=== PATIENT | female | born 1980 | race American Indian/Alaskan Native ===

== ENCOUNTER 2024-08-01 09:16 | Outpatient (RCR) | payer OTHER, SELFPAY ==
--- NOTE | 2024-08-20 21:35 | CTCCONSULT_ITS ---
Patient: ABDELRAHMAN PEMBERTON : 1980 MR#: [id number] Page 2 of 3 CONSULTATION NOTE DATE OF CONSULTATION: 08/01/2024 NAME: ABDELRAHMAN PEMBERTON ACCOUNT: [id number] : 1980 AGE: 44 REFERRING PHYSICIAN: Mimi Ruffin MD ([facility]) PRIMARY PHYSICIAN: Mimi Ruffin MD ([facility]) REASON FOR VISIT: Microcytic anemia HISTORY OF PRESENT ILLNESS: 44-year-old female with a history of fatigue. Patient also getting B12 injections outside. Patient was noted to have microcytic anemia and is here for follow-up and establishing care. Patient is rissa enopausal. Patient used better. Patient. Patient had bariatric surgery. Patient was referred to g astroenterology. Patient also noted to have elevated platelet count and was advised to follow-up wit hematology. OTHER MEDICAL HISTORY/CONDITIONS: ZACHARY? 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 Tobacco?Use:?Denies ETOH?Use:?Socailly Drug?Note:?Denies Social History Note:?Lives with children LICENSED NURSE PRACTITIONER HISTORY: Menarche?-?Age:?13 Date?LMP:?08/01/2024 Hormone?Use:?Denies :?3 Live?Births:?3 Age?1st?:?22 MEDICATIONS: 1. escitalopram oxalate - 10 mg 1 tab Daily 2. gabapentin - 300 mg 1 Capsule Four times a day 3. tiZANidine - 4 mg 1 tab Twice a Day Medications Last Reconciled by Leena Merchant RN on 08/01/2024 ALLERGIES: latex REVIEW OF SYSTEMS: A complete 14-point review of systems was performed and is negative except as noted in interval histo ry. PHYSICAL EXAMINATION: VITAL SIGNS: Temperature?99.4, B/P?129/80, Height?65?inches, Oxygen?Saturation?100% Weight?205?lbs PAIN: 7 - Between severe and very severe pain ECOG Performance Status: 0 - Asymptomatic and fully active GENERAL APPEARANCE: Appears well, in no apparent distress, appropriately interactive. HEENT: Normocephalic, no temporal wasting, normal conjunctiva, no scleral icterus, normal hearing, li ps without lesions, neck normal range of motion. CARDIOVASCULAR: Not assessed. PULMONARY: Normal respiratory effort, no respiratory distress or use of accessory muscles, speaking i n full sentences, no tachypnea. EXTREMITIES: No pedal edema or cyanosis. SKIN: Normal skin appearance. NEUROLOGIC: Alert and oriented x4. PSHYCHIATRIC: Appropriate affect, mood normal, behavior normal, intact thought and speech. 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 BILLING AND COMPLIANCE: I reviewed external records from providers outside my specialty as summarized above. I spent a total of 50 minutes on this patient?s care on the day of their visit excluding time spent related to any bi lled procedures. This time includes time spent with the patient as well as time spent documenting in the medical record, reviewing patients records and tests, obtaining history, placing orders, communi cating with other healthcare professionals, counseling the patient, family or caregiver, and/or care coordination for the diagnoses above. Electronically Signed by: {Object.Sanct_ID*PnP.NameFL@M}, {Object.Sanct_ID*PnP.Suffix@U} D: {Object.Sanct_Date} T: {Object.Sanct_Time} CC: PCP: Mimi Ruffin ([facility]) Referring: Mimi Ruffin ([facility]) This document was completed utilizing speech recognition software. Grammatical errors, random word in sertions, pronoun errors, and incomplete sentences are an occasional consequence of this system due t o software limitations, ambient noise, and hardware issues. Any formal questions or concerns about e content, text or information contained within the body of this dictation should be directly address ed to the provider for clarification.
== END 2024-08-14 23:59 | disposition home or self-care (01) ==
LOC: SCTC 09:16
PROVIDERS: PCP Nurse Practitioner Family; Referring Provider Nurse Practitioner Family; Visit Provider Internal Medicine Hematology & Oncology
DX: D50.9 Iron deficiency anemia, unspecified (principal); D75.839 Thrombocytosis, unspecified
CPT/HCPCS: 99213; G0463

== ENCOUNTER → 2024-08-01 | Outpatient (CLI) | payer OTHER, SELFPAY ==
[2024-08-01 12:11] LABS: Basophils % (Auto) 1 % (0-2.5); Eosinophils # (Auto) 0.2 Thou/mm3 (0.0-0.5); Eosinophils % (Auto) 2 % (0-10); Hematocrit 25.8 % (36.0-46.0); Immature Granulocytes % (Auto) 1 % (0-0); Immature Granulocytes Auto 0.03 Thou/mm3 (0.00-0.00); Lymphocytes # (Auto) 1.7 Thou/mm3 (1.0-4.8); Lymphocytes % (Auto) 27 % (10-50); Mean Corpuscular HGB Conc 28.3 g/dl (31.0-37.0); Mean Corpuscular Hemoglobin 17.7 pg (25.0-35.0); Mean Corpuscular Volume 63 fL (80-100); Monocytes # (Auto) 0.5 Thou/mm3 (0.0-0.8); Monocytes % (Auto) 8 % (0-12); Neutrophils # (Auto) 3.8 Thou/mm3 (1.8-7.7); Neutrophils % (Auto) 62 % (37-80); Nucleated Red Blood Cell % 0 /100 WBC (0); Platelet Count 531 Thou/mm3 (140-440); RDW Standard Deviation 43.9 fL (36.4-46.3); Red Blood Count 4.12 Miln/mm3 (4.00-5.20); White Blood Count 6.2 Thou/mm3 (3.6-11.0)
[2024-08-01 12:19] LABS: Alanine Aminotransferase 21 U/L (10-49); Albumin, Serum 4.8 gm/dL (3.5-5.0); Albumin/Globulin Ratio 1.8 (1.2-2.2); Alkaline Phosphatase 110 U/L (46-116); Anion Gap 9 (7-16); Aspartate Amino Transferase < 10 U/L (0-34); BUN/Creatinine Ratio 18 Ratio (12-20); Bilirubin,Total 0.4 mg/dL (0.3-1.2); Blood Urea Nitrogen 11 mg/dL (9-23); Calcium 9.5 mg/dL (8.3-10.6); Calcium (Corrected) 9.5 mg/dL (8.5-10.1); Carbon Dioxide 26.5 mMol/L (20.0-31.0); Chloride 105 mMol/L (98-107); Creatinine (Component) 0.6 mg/dL (0.6-1.3); Globulin 2.6 gm/dL (2.3-3.5); Glucose 78 mg/dL (74-106); LDH (Lactate Dehydrogenase) 158 U/L (120-246); Osmolality,Calculated 277 (275-295); Potassium 3.8 mMol/L (3.4-5.1); Sodium 140 mMol/L (136-145); Total Protein 7.4 gm/dL (5.7-8.2); eGFR > 60 See Note
[2024-08-01 12:23] LABS: Hemoglobin 7.3 g/dL (12.0-16.0)
[2024-08-01 12:28] LABS: Vitamin B12 531 pg/mL (211-911)
[2024-08-01 12:32] LABS: Ferritin 3 ng/mL (7.3-270.7); Iron 14 mcg/dL (50-170); Percent Iron Saturation 3 % (20-55); Total Iron Binding Capacity 464 mcg/dL (250-425); Unsaturated Iron Binding 450 (225-295)
[2024-08-10 06:14] LABS: Erythropoietin (EPO)* 304.3 mIU/mL (2.6-18.5); Haptoglobin* 116 mg/dL (43-212)
== END | disposition home or self-care (01) ==
LOC: COPL 11:06 → SCTO 11:07
PROVIDERS: PCP Nurse Practitioner Family; Referring Provider Internal Medicine Hematology & Oncology; Visit Provider Internal Medicine Hematology & Oncology
DX: D50.9 Iron deficiency anemia, unspecified (principal)
CPT/HCPCS: 36415; 80053; 82607; 82668; 82728; 83010; 83540; 83550; 83615; 85025

== ENCOUNTER → 2024-09-14 | Outpatient (CLI) | payer OTHER, SELFPAY ==
[2024-09-14 09:02] LABS: Basophils % (Auto) 1 % (0-2.5); Eosinophils # (Auto) 0.1 Thou/mm3 (0.0-0.5); Eosinophils % (Auto) 3 % (0-10); Hematocrit 27.9 % (36.0-46.0); Immature Granulocytes % (Auto) 0 % (0-0); Immature Granulocytes Auto 0.01 Thou/mm3 (0.00-0.00); Lymphocytes # (Auto) 1.5 Thou/mm3 (1.0-4.8); Lymphocytes % (Auto) 33 % (10-50); Mean Corpuscular HGB Conc 28.3 g/dl (31.0-37.0); Mean Corpuscular Hemoglobin 17.8 pg (25.0-35.0); Mean Corpuscular Volume 63 fL (80-100); Monocytes # (Auto) 0.3 Thou/mm3 (0.0-0.8); Monocytes % (Auto) 7 % (0-12); Neutrophils # (Auto) 2.5 Thou/mm3 (1.8-7.7); Neutrophils % (Auto) 57 % (37-80); Nucleated Red Blood Cell % 0 /100 WBC (0); Platelet Count 454 Thou/mm3 (140-440); RDW Standard Deviation 46.7 fL (36.4-46.3); Red Blood Count 4.45 Miln/mm3 (4.00-5.20); White Blood Count 4.4 Thou/mm3 (3.6-11.0)
[2024-09-14 09:11] LABS: Vitamin B12 658 pg/mL (211-911)
[2024-09-14 09:18] LABS: Alanine Aminotransferase 20 U/L (10-49); Albumin, Serum 4.1 gm/dL (3.5-5.0); Albumin/Globulin Ratio 1.5 (1.2-2.2); Alkaline Phosphatase 99 U/L (46-116); Anion Gap 8 (7-16); Aspartate Amino Transferase 14 U/L (0-34); BUN/Creatinine Ratio 17 Ratio (12-20); Bilirubin,Total 0.6 mg/dL (0.3-1.2); Blood Urea Nitrogen 10 mg/dL (9-23); Calcium 9.4 mg/dL (8.3-10.6); Calcium (Corrected) 9.4 mg/dL (8.5-10.1); Chloride 106 mMol/L (98-107); Creatinine (Component) 0.6 mg/dL (0.6-1.3); Globulin 2.8 gm/dL (2.3-3.5); Glucose 97 mg/dL (74-106); LDH (Lactate Dehydrogenase) 126 U/L (120-246); Osmolality,Calculated 282 (275-295); Potassium 3.8 mMol/L (3.4-5.1); Sodium 142 mMol/L (136-145); Total Protein 6.9 gm/dL (5.7-8.2); eGFR > 60 See Note
[2024-09-14 09:23] LABS: Hemoglobin 7.9 g/dL (12.0-16.0)
[2024-09-14 09:48] LABS: Ferritin 4 ng/mL (7.3-270.7); Total Iron Binding Capacity 406 mcg/dL (250-425)
[2024-09-14 09:58] LABS: Iron 19 mcg/dL (50-170); Percent Iron Saturation 4 % (20-55); Unsaturated Iron Binding 387 (225-295)
[2024-09-14 17:31] LABS: Path Review Blood Smear Sent to Pathologist
[2024-09-21 06:40] LABS: Erythropoietin (EPO)* 265.6 mIU/mL (2.6-18.5); Haptoglobin* 101 mg/dL (43-212)
== END | disposition home or self-care (01) ==
PROVIDERS: PCP Internal Medicine Hematology & Oncology; Referring Provider Internal Medicine Hematology & Oncology; Visit Provider Internal Medicine Hematology & Oncology
DX: D50.9 Iron deficiency anemia, unspecified (principal)
CPT/HCPCS: 36415; 80053; 82607; 82668; 82728; 82746; 83010; 83540; 83550; 83615; 85025

== ENCOUNTER → 2024-09-26 | Outpatient (CLI) | payer OTHER, SELFPAY ==
[2024-09-26 18:03] LABS: Basophils % (Auto) 0 % (0-2.5); Eosinophils # (Auto) 0.1 Thou/mm3 (0.0-0.5); Eosinophils % (Auto) 1 % (0-10); Hematocrit 28.6 % (36.0-46.0); Immature Granulocytes % (Auto) 0 % (0-0); Immature Granulocytes Auto 0.02 Thou/mm3 (0.00-0.00); Lymphocytes # (Auto) 2.8 Thou/mm3 (1.0-4.8); Lymphocytes % (Auto) 31 % (10-50); Mean Corpuscular HGB Conc 28.3 g/dl (31.0-37.0); Mean Corpuscular Hemoglobin 18.4 pg (25.0-35.0); Mean Corpuscular Volume 65 fL (80-100); Monocytes # (Auto) 0.8 Thou/mm3 (0.0-0.8); Monocytes % (Auto) 8 % (0-12); Neutrophils # (Auto) 5.5 Thou/mm3 (1.8-7.7); Neutrophils % (Auto) 59 % (37-80); Nucleated Red Blood Cell % 0 /100 WBC (0); Platelet Count 489 Thou/mm3 (140-440); Red Blood Count 4.41 Miln/mm3 (4.00-5.20); White Blood Count 9.3 Thou/mm3 (3.6-11.0)
[2024-09-26 18:08] LABS: Hemoglobin 8.1 g/dL (12.0-16.0)
[2024-09-26 23:08] LABS: Path Review Blood Smear Sent to Pathologist
== END | disposition home or self-care (01) ==
LOC: SCTO 16:24
PROVIDERS: PCP Nurse Practitioner Family; Referring Provider Internal Medicine Hematology & Oncology; Visit Provider Internal Medicine Hematology & Oncology
DX: D50.9 Iron deficiency anemia, unspecified (principal)
CPT/HCPCS: 36415; 85025

== ENCOUNTER 2024-10-11 13:57 | Outpatient (RCR) | payer OTHER, SELFPAY | END 2024-10-12 23:59 | disposition home or self-care (01) | LOC: SCTC 13:57 | PROVIDERS: PCP Nurse Practitioner Family; Referring Provider Internal Medicine Hematology & Oncology; Visit Provider Internal Medicine Hematology & Oncology | DX: D50.9 Iron deficiency anemia, unspecified (principal) | CPT/HCPCS: 96365; 96375; A4216; J2916; J2919; J3490; J7040; J7050 ==

== ENCOUNTER 2024-10-15 09:20 | Day surgery (SDC) | payer OTHER, SELFPAY ==
--- NOTE | 2024-10-12 11:06 | EKG_ITS ---
[facility] Test Date: 2024-10-12 Pat Name: ABDELRAHMAN PEMBERTON Department: Room: - Gender: Female [employer] L[employer] Repairer: RT STUDENT : 1980 Requested By: Gabriele Irvin Order Number: [id number] Reading MD: Gabriele Irvin Measurements Intervals [place] Rate: 71 P: 0 TX: 136 QRS: 15 QRSD: 101 T: -6 QT: 361 QTc: 395 Interpretive Statements SINUS RHYTHM WARNING: DATA QUALITY MAY AFFECT INTERPRETATION No previous ECG available for comparison /store/S0/[id number]/ecg/[id number].pdf
[2024-10-12 11:12] LABS: HCG,Qualitative Serum Negative
[2024-10-12 11:19] LABS: Partial Thromboplastin Time 23.6 Seconds (22.0-36.0); Prothrombin Time 11.1 Seconds (9.0-12.2)
[2024-10-12 11:30] LABS: Alanine Aminotransferase 11 U/L (10-49); Albumin, Serum 4.4 gm/dL (3.5-5.0); Albumin/Globulin Ratio 1.7 (1.2-2.2); Alkaline Phosphatase 87 U/L (46-116); Anion Gap 10 (7-16); Aspartate Amino Transferase 10 U/L (0-34); BUN/Creatinine Ratio 10 Ratio (12-20); Bilirubin,Total 0.4 mg/dL (0.3-1.2); Blood Urea Nitrogen 9 mg/dL (9-23); Calcium 9.5 mg/dL (8.3-10.6); Calcium (Corrected) 9.5 mg/dL (8.5-10.1); Carbon Dioxide 27.2 mMol/L (20.0-31.0); Chloride 107 mMol/L (98-107); Creatinine (Component) 0.9 mg/dL (0.6-1.3); Globulin 2.6 gm/dL (2.3-3.5); Glucose 93 mg/dL (74-106); Osmolality,Calculated 285 (275-295); Potassium 3.7 mMol/L (3.4-5.1); Sodium 144 mMol/L (136-145); eGFR > 60 See Note
[2024-10-12 14:05] VITALS: BMI 28.8
[2024-10-15 09:46] VITALS: BP 121/74; PULSE 60; RESP 17; TEMP 36.7; O2SAT 98; BMI 31.1
[2024-10-15 11:02] VITALS: BP 142/65; PULSE 59; PULSE 64; RESP 18; O2SAT 99
[2024-10-15 11:33] VITALS: BP 116/62; PULSE 71; RESP 20; TEMP 36.9; O2SAT 95
[2024-10-15 11:43] VITALS: BP 121/77; PULSE 57; PULSE 59; RESP 18; O2SAT 97
[2024-10-15 11:53] VITALS: BP 123/77; PULSE 55; RESP 15; O2SAT 98
[2024-10-15 12:03] VITALS: BP 119/78; PULSE 57; RESP 16; TEMP 36.9; O2SAT 98
--- NOTE | 2024-10-15 12:41 | SUR.PHASEII ---
1204 Pt more awake and alert. Denies pain, N/V or difficulty swallowing. Abd remains soft. Terese PO fluids. 1225 Pt assessment unchanged. No complaints. Amb with steady gait. Daughter assisting with pt getting dressed. DC instructions given. Both state understanding. Pt meets dc criteria-to home.
== END 2024-10-15 12:25 | disposition home or self-care (01) ==
PROVIDERS: PCP Nurse Practitioner Family; Referring Provider Specialist; Visit Provider Specialist
PROC: 0DBE8ZX Excision of Large Intestine, Via Natural or Artificial Opening Endoscopic, Diagnostic (ICD-10-PCS; CPT 45380; principal; 2024-10-15 10:00)
PROC: (CPT 43239; 2024-10-15 10:00)
DX: D50.9 Iron deficiency anemia, unspecified (principal); Z01.810 Encounter for preprocedural cardiovascular examination; K64.9 Unspecified hemorrhoids; K57.30 Diverticulosis of large intestine without perforation or abscess without bleeding
CPT/HCPCS: 45378; 36415; 80053; 81025; 84703; 85610; 85730; 93005; A4649

== ENCOUNTER 2024-11-01 13:42 | Outpatient (RCR) | payer OTHER, SELFPAY | END 2024-11-12 23:59 | disposition home or self-care (01) | LOC: SCTC 13:42 | PROVIDERS: PCP Nurse Practitioner Family; Referring Provider Nurse Practitioner Family; Visit Provider Internal Medicine Hematology & Oncology | DX: D50.9 Iron deficiency anemia, unspecified (principal); D75.839 Thrombocytosis, unspecified | CPT/HCPCS: 96365; 96366; 96375; A4216; J2916; J2919; J3490; J7040; J7050 ==

== ENCOUNTER 2024-11-22 15:24 | Outpatient (RCR) | payer OTHER, SELFPAY | END 2024-12-12 23:59 | disposition home or self-care (01) | LOC: SCTC 15:24 | PROVIDERS: PCP Nurse Practitioner Family; Referring Provider Nurse Practitioner Family; Visit Provider Nurse Practitioner Family | DX: D50.9 Iron deficiency anemia, unspecified (principal); N92.6 Irregular menstruation, unspecified; Z98.84 Bariatric surgery status | CPT/HCPCS: 99212; J2916; J7050; G0463 ==

== ENCOUNTER → 2024-12-12 | Outpatient (CLI) | payer OTHER, SELFPAY ==
[2024-12-12 08:37] LABS: Basophils % (Auto) 1 % (0-2.5); Eosinophils # (Auto) 0.1 Thou/mm3 (0.0-0.5); Eosinophils % (Auto) 1 % (0-10); Hematocrit 36.2 % (36.0-46.0); Hemoglobin 11.5 g/dL (12.0-16.0); Immature Granulocytes % (Auto) 0 % (0-0); Immature Granulocytes Auto 0.02 Thou/mm3 (0.00-0.00); Immature Reticulocyte Fraction 12.9 % (3.0-15.9); Lymphocytes # (Auto) 1.8 Thou/mm3 (1.0-4.8); Lymphocytes % (Auto) 29 % (10-50); Mean Corpuscular HGB Conc 31.8 g/dl (31.0-37.0); Mean Corpuscular Hemoglobin 25.8 pg (25.0-35.0); Mean Corpuscular Volume 81 fL (80-100); Monocytes # (Auto) 0.5 Thou/mm3 (0.0-0.8); Monocytes % (Auto) 9 % (0-12); Neutrophils # (Auto) 3.7 Thou/mm3 (1.8-7.7); Neutrophils % (Auto) 60 % (37-80); Nucleated Red Blood Cell % 0 /100 WBC (0); Platelet Count 314 Thou/mm3 (140-440); RDW Standard Deviation 65.1 fL (36.4-46.3); Red Blood Count 4.46 Miln/mm3 (4.00-5.20); Reticulocyte % (Auto) 0.8 % (0.5-1.5); Reticulocyte Absolute Auto 33.5 Biln/L (25.0-75.0); White Blood Count 6.3 Thou/mm3 (3.6-11.0)
[2024-12-12 08:54] LABS: Ferritin 6 ng/mL (7.3-270.7); Iron 25 mcg/dL (50-170); Percent Iron Saturation 6 % (20-55); Total Iron Binding Capacity 384 mcg/dL (250-425); Unsaturated Iron Binding 359 (225-295)
[2024-12-12 08:56] LABS: Alanine Aminotransferase 12 U/L (10-49); Albumin/Globulin Ratio 1.5 (1.2-2.2); Alkaline Phosphatase 84 U/L (46-116); Anion Gap 8 (7-16); Aspartate Amino Transferase 11 U/L (0-34); BUN/Creatinine Ratio 13 Ratio (12-20); Bilirubin,Total 0.4 mg/dL (0.3-1.2); Blood Urea Nitrogen 9 mg/dL (9-23); Calcium 9.1 mg/dL (8.3-10.6); Calcium (Corrected) 9.1 mg/dL (8.5-10.1); Carbon Dioxide 28.5 mMol/L (20.0-31.0); Chloride 108 mMol/L (98-107); Creatinine (Component) 0.7 mg/dL (0.6-1.3); Globulin 2.7 gm/dL (2.3-3.5); Glucose 88 mg/dL (74-106); Osmolality,Calculated 284 (275-295); Potassium 4.2 mMol/L (3.4-5.1); Sodium 144 mMol/L (136-145); Total Protein 6.7 gm/dL (5.7-8.2); eGFR > 60 See Note
[2024-12-12 09:14] LABS: Folate 9.28 ng/mL (>5.38); Vitamin B12 437 pg/mL (211-911)
== END | disposition home or self-care (01) ==
LOC: SCTO 06:48
PROVIDERS: PCP Nurse Practitioner Family; Referring Provider Nurse Practitioner Family; Visit Provider Nurse Practitioner Family
DX: D50.9 Iron deficiency anemia, unspecified (principal)
CPT/HCPCS: 36415; 80053; 82607; 82728; 82746; 83540; 83550; 85025; 85046

== ENCOUNTER 2025-01-10 13:46 | Outpatient (RCR) | payer OTHER, SELFPAY | END 2025-01-12 23:59 | disposition home or self-care (01) | LOC: SCTC 13:46 | PROVIDERS: PCP Nurse Practitioner Family; Referring Provider Nurse Practitioner Family; Visit Provider Internal Medicine Hematology & Oncology | DX: D50.9 Iron deficiency anemia, unspecified (principal); Z98.84 Bariatric surgery status; N92.0 Excessive and frequent menstruation with regular cycle | CPT/HCPCS: 96365; 96367; 96375; 99212; A4216; J2916; J2919; J3490; J7040; J7050; G0463 ==

== ENCOUNTER → 2025-01-22 | Outpatient (CLI) | payer OTHER, SELFPAY ==
--- NOTE | 2025-01-22 13:30 | XR_ITS ---
Examination: CT chest with intravenous contrast CT abdomen with intravenous contrast CT pelvis with intravenous contrast 2-D coronal and sagittal reconstructions Time of exam: January 22, [address] abdomen pelvis November 20, 2020 INDICATIONS: Diagnosis on deficiency anemia unspecified CTDI: vol (mGy) : 8.16 DLP: (mGycm): 576 Technique: Multiple axial images of the chest, abdomen and pelvis with intravenous contrast, 3.0 mm slice thickness. Images obtained post intravenous injection Isovue 370 60 cc. 2-D sagittal and coronal reconstructions. Low dose protocols were performed. One or more of the following dose reduction techniques were used; automated exposure control, adjustment of the mA and/or KV according to patient size, use of iterative reconstruction technique. Findings: No thoracic aortic aneurysm dilatation No pulmonary artery filling defects No paratracheal tracheobronchial or bronchopulmonary adenopathy 2 mm pulmonary nodule left upper lobe image 89 No pneumonia or pulmonary edema No liver or splenic lesion No gallstones No pancreatic or adrenal mass No renal or ureteral calculi, no hydronephrosis No abdominal or pelvic lymphadenopathy No pericecal inflammatory change No diverticulitis No pelvic mass Contracted urinary bladder Moderate osteopenia IMPRESSION: No mediastinal lymphadenopathy 2 mm pulmonary nodule left upper lobe, with this study as baseline recommend 6 month follow-up CT chest without contrast No abdominal or pelvic lymphadenopathy or mass
[2025-01-22 13:46] LABS: HCG Qualitative,Urine Negative
== END | disposition home or self-care (01) ==
PROVIDERS: PCP Nurse Practitioner Family; Referring Provider Nurse Practitioner Family; Visit Provider Nurse Practitioner Family
DX: R91.1 Solitary pulmonary nodule (principal); M85.80 Other specified disorders of bone density and structure, unspecified site; Z32.00 Encounter for pregnancy test, result unknown; D50.9 Iron deficiency anemia, unspecified
CPT/HCPCS: 71260; 74177; 81025; A4649; Q9967

== ENCOUNTER 2025-02-07 13:21 | Outpatient (RCR) | payer OTHER, SELFPAY | END 2025-02-11 23:59 | disposition home or self-care (01) | LOC: SCTC 13:21 | PROVIDERS: PCP Nurse Practitioner Family; Referring Provider Internal Medicine Hematology & Oncology; Visit Provider Nurse Practitioner Family | DX: D50.9 Iron deficiency anemia, unspecified (principal); N92.6 Irregular menstruation, unspecified | CPT/HCPCS: 96365; 99212; A4216; J2916; J7040; J7050; G0463 ==

== ENCOUNTER → 2025-03-01 | Outpatient (CLI) | payer OTHER, SELFPAY ==
[2025-03-01 08:39] LABS: Basophils # (Auto) 0.0 Thou/mm3 (0.0-0.2); Basophils % (Auto) 1 % (0-2.5); Eosinophils # (Auto) 0.1 Thou/mm3 (0.0-0.5); Eosinophils % (Auto) 1 % (0-10); Hematocrit 40.9 % (36.0-46.0); Hemoglobin 13.2 g/dL (12.0-16.0); Immature Granulocytes Auto 0.01 Thou/mm3 (0.00-0.00); Immature Reticulocyte Fraction 8.8 % (3.0-15.9); Lymphocytes # (Auto) 1.9 Thou/mm3 (1.0-4.8); Lymphocytes % (Auto) 31 % (10-50); Mean Corpuscular HGB Conc 32.3 g/dl (31.0-37.0); Mean Corpuscular Hemoglobin 29.9 pg (25.0-35.0); Mean Corpuscular Volume 93 fL (80-100); Monocytes # (Auto) 0.4 Thou/mm3 (0.0-0.8); Monocytes % (Auto) 6 % (0-12); Neutrophils # (Auto) 3.7 Thou/mm3 (1.8-7.7); Neutrophils % (Auto) 61 % (37-80); Nucleated Red Blood Cell # 0.00 Thou/mm3 (0.00-0.00); Nucleated Red Blood Cell % 0 /100 WBC (0); Platelet Count 236 Thou/mm3 (140-440); RDW Standard Deviation 55.2 fL (36.4-46.3); Red Blood Count 4.41 Miln/mm3 (4.00-5.20); Reticulocyte % (Auto) 1.4 % (0.5-1.5); Reticulocyte Absolute Auto 60.9 Biln/L (25.0-75.0); Reticulocyte Hgb Content 33.9 pg (28.0-35.0); White Blood Count 6.0 Thou/mm3 (3.6-11.0)
[2025-03-01 08:51] LABS: Folate 11.74 ng/mL (>5.38); Vitamin B12 559 pg/mL (211-911)
[2025-03-01 08:54] LABS: Ferritin 38 ng/mL (7.3-270.7); Iron 74 mcg/dL (50-170); Percent Iron Saturation 22 % (20-55); Total Iron Binding Capacity 324 mcg/dL (250-425); Unsaturated Iron Binding 250 (225-295)
[2025-03-01 08:58] LABS: Alanine Aminotransferase 10 U/L (10-49); Albumin, Serum 4.1 gm/dL (3.5-5.0); Albumin/Globulin Ratio 1.5 (1.2-2.2); Alkaline Phosphatase 81 U/L (46-116); Anion Gap 8 (7-16); Aspartate Amino Transferase 11 U/L (0-34); BUN/Creatinine Ratio 11 Ratio (12-20); Bilirubin,Total 0.7 mg/dL (0.3-1.2); Blood Urea Nitrogen 8 mg/dL (9-23); Calcium 9.2 mg/dL (8.3-10.6); Calcium (Corrected) 9.2 mg/dL (8.5-10.1); Carbon Dioxide 28.0 mMol/L (20.0-31.0); Chloride 106 mMol/L (98-107); Creatinine (Component) 0.7 mg/dL (0.6-1.3); Globulin 2.7 gm/dL (2.3-3.5); Glucose 82 mg/dL (74-106); Osmolality,Calculated 280 (275-295); Potassium 4.0 mMol/L (3.4-5.1); Sodium 142 mMol/L (136-145); Total Protein 6.8 gm/dL (5.7-8.2); eGFR > 60 See Note
[2025-03-05 06:49] LABS: Erythropoietin (EPO)* 29.4 mIU/mL (2.6-18.5)
== END | disposition home or self-care (01) ==
LOC: SCTO 06:59
PROVIDERS: PCP Nurse Practitioner Family; Referring Provider Nurse Practitioner Family; Visit Provider Nurse Practitioner Family
DX: D50.9 Iron deficiency anemia, unspecified (principal)
CPT/HCPCS: 36415; 80053; 82607; 82668; 82728; 82746; 83540; 83550; 85025; 85046

== ENCOUNTER 2025-03-04 10:18 | Outpatient (RCR) | payer OTHER, SELFPAY | END 2025-03-14 23:59 | disposition home or self-care (01) | LOC: SCTC 10:18 | PROVIDERS: Referring Provider Nurse Practitioner Family; Visit Provider Nurse Practitioner Family | DX: D50.9 Iron deficiency anemia, unspecified (principal); Z98.84 Bariatric surgery status; N92.0 Excessive and frequent menstruation with regular cycle; M85.80 Other specified disorders of bone density and structure, unspecified site | CPT/HCPCS: 99212; J2916; J7050; G0463 ==

== ENCOUNTER → 2025-03-07 | Outpatient (CLI) | payer OTHER, SELFPAY ==
--- NOTE | 2025-03-07 13:20 | XR_ITS ---
Examination: Bone densitometry Date and time of exam:March 07, 2025 at 1326 hours INDICATIONS: Premenopausal, anemia Technique: Lumbar spine and hip total bone mineralization values of an calculated. Peak reference and age match control results have been displayed. Findings: Lumbar spine total bone mineralization is1.057 gm/cm2. This is 0.1 standard deviations above peak reference. This is 0.4 standard deviations above age-matched controls. Hip total bone mineralization is 0.852 gm/cm2 This is 0.7 standard deviations below peak reference. This is 0.5 standard deviations below age-matched controls Impression: There is normal mineralization based on lumbar spine measurements. There is osteopenia based on hip measurements
== END | disposition home or self-care (01) ==
LOC: CDIM 13:01
PROVIDERS: PCP Nurse Practitioner Family; Referring Provider Nurse Practitioner Family; Visit Provider Nurse Practitioner Family
DX: M81.0 Age-related osteoporosis without current pathological fracture (principal); M85.88 Other specified disorders of bone density and structure, other site
CPT/HCPCS: 77080

== ENCOUNTER 2025-06-28 18:41 | Emergency (ER) | payer OTHER, SELFPAY ==
[2025-06-28 18:43] VITALS: BMI 23.6
[2025-06-28 18:55] VITALS: BP 127/92; PULSE 99; RESP 18; TEMP 36.7; O2SAT 100
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
[2025-06-28] MEDS: ACETAMINOPHEN 500 MG TABLET 1000 MG PO (19:39)
== END 2025-06-28 21:24 | disposition home or self-care (01) ==
PROVIDERS: Emergency Provider Family Medicine; PCP Nurse Practitioner Family
DX: S00.83XA Contusion of other part of head, initial encounter (principal); Y04.0XXA Assault by unarmed brawl or fight, initial encounter
CPT/HCPCS: 70486; 72125; 99282; A9270